=== PATIENT | female | born 1945 | race Caucasian/White ===

== ENCOUNTER 2020-12-23 11:23 | Day surgery (SDC) | payer MEDICARE, MEDICAID ==
[~2020-12-23] VITALS: Ht 160 cm; Wt 73.6 kg
--- NOTE | ~2020-12-23 | OP ---
PATIENT NAME: GRACE ROMERO MEDICAL RECORD: [id number] :49 LOCATION:[facility] ADMISSION DATE: SURGEON: MOLINA HENAO MD DATE OF OPERATION: 12/23/2020 PROCEDURE: Upper endoscopy. PREOPERATIVE DIAGNOSES: Dysphagia, abdominal pain. MEDICATION: Propofol per anesthesia. DESCRIPTION OF PROCEDURE: Upper endoscopy was performed. The endoscope was advanced through the mouth and advanced to the second part of the duodenum. The proximal and mid esophagus were normal. In the distal esophagus was esophageal stricture. This was dilated with a 18, 19 and 20 mm balloon. In the gastric body was erythema consistent with gastritis. Random gastric biopsies were taken. In the antrum were a few scattered antral erosions and a small linear ulcer. The biopsies of the stomach that were taken were done in the antrum. In the duodenum was mild edema consistent with duodenitis. Small bowel biopsies were taken. The patient tolerated the procedure well. There were no immediate complications. FINAL DIAGNOSES: Distal esophageal stricture, gastritis, antral erosions and a small linear esophageal ulcer, duodenitis. PLAN: Check histology results. Avoid NSAIDs. Follow up in GI office. I will write a prescription for Protonix today and check biopsies. TRANSINT:[id number] Voice Confirmation ID: [id number] DOCUMENT ID: [id number] MOLINA HENAO MD CC: [id number] DICTATION DATE: 12/23/20 1331 MATERIALS MANAGEMENT SUPERVISOR: 12/23/20 1449 [facility] [address] [place] [address]
[2020-12-23 11:59] LABS: BASOPHILS 0.6 % (0-2); EOSINOPHILS 1.3 % (0-7); HEMATOCRIT 41.8 % (36.0-48.0); LYMPHOCYTES 14.6 % (15-50); MCH 31.1 pg (26.0-34.0); MCHC 33.6 g/dL (31.0-37.0); MCV 92.5 fL (80.0-100.0); MONOCYTES 6.5 % (2-11); PLATELET COUNT 274 10x3/uL (130-400); RBC 4.52 10x6/uL (4.00-5.40); RDW 13.8 % (11.5-14.5); WBC 7.4 10x3/uL (4.8-10.8)
[2020-12-23 12:10] LABS: ANION GAP 14.2 mmol/L (8-16); CALCIUM 8.5 mg/dL (8.5-10.1); CARBON DIOXIDE 23.1 mmol/L (21.0-32.0); CREATININE - SERUM 0.9 mg/dL (0.6-1.3); POTASSIUM - SERUM 3.3 mmol/L (3.5-5.1)
[2020-12-23] MEDS ORDERED: LOVASTATIN40 MG PO (12:18)
[2020-12-23] MEDS ORDERED: CARAFATE1 G PO (12:19)
[2020-12-23] MEDS ORDERED: TRILEPTAL300 MG PO (12:19)
[2020-12-23] MEDS ORDERED: MECLIZINE HCL25 MG PO (12:20)
[2020-12-23 12:46] VITALS: Ht 160 cm; Wt 73.6 kg
[2020-12-23] MEDS ORDERED: LISINOPRIL5 MG PO (12:49)
[2020-12-23] MEDS ORDERED: IMODIUM2 MG PO (12:49)
[2020-12-23] MEDS ORDERED: TOPAMAX200 MG PO (12:50)
--- NOTE | 2020-12-23 14:40 | NUR ---
DC TEACHING COMPLETE, VERBALIZED UNDERSTANDING. DR. HENAO ALSO HAS SPOKEN TO PT. PIV REMOVED WITH CATHETER INTACT, PT DRESSING SELF INADVERTENTLY DID NOT HAVE PT SIGN DC PAPERS OR COPY OF SCRIPT AFTER TEACHING WAS COMPLETED. 1455 PT DC'D VIA WC ACCOMPANIED BY THIS NURSE TO POV WITH ALL BELONGINGS AND DISCHARGE INSTRUCTIONS. FRIEND DRIVING.
== END 2020-12-23 14:55 | disposition home or self-care (01) ==
LOC: D.OPS 11:23
PROVIDERS: ATTEND Internal Medicine Gastroenterology
DX: R13.10 Dysphagia, unspecified (principal); R10.13 Epigastric pain; K22.2 Esophageal obstruction; K29.80 Duodenitis without bleeding; K29.70 Gastritis, unspecified, without bleeding; K22.10 Ulcer of esophagus without bleeding; K25.9 Gastric ulcer, unspecified as acute or chronic, without hemorrhage or perforation; Z86.010 Personal history of colon polyps; K57.30 Diverticulosis of large intestine without perforation or abscess without bleeding; K86.2 Cyst of pancreas